=== PATIENT | female | born 1975 | race Caucasian/White ===

== ENCOUNTER 2024-09-06 09:03 | Day surgery (SDC) | payer BC ==
[2024-09-06] MEDS ORDERED: dexAMETHasone sodium phosphate IJ ONE (09:04)
[2024-09-06] MEDS ORDERED: Sodium Chloride 0.9(Preservative Free) 10 ML IJ ONE (09:04)
[2024-09-06] MEDS ORDERED: propofoL IV ONE (11:45)
[2024-09-06] MEDS ORDERED: Xylocaine-Mpf 2% 5 Ml Vial ONE (11:46)
[2024-09-06 12:35] LABS: HCG URINE TEST NEGATIVE (NEGATIVE)
--- NOTE | 2024-09-06 19:25 | XRAY ---
32 seconds of fluoroscopy was used in surgery for a right L4-S1 transforaminal ANATOLIY.
--- NOTE | 2024-09-06 19:39 | XRAY ---
Indication: Right L4-S1 transforaminal ANATOLIY. Intraoperative fluoroscopy provided for 32 seconds. 4 digital spot image submitted for interpretation demonstrates posterior needle tips projecting over expected right L4 and L5 nerve roots. Small amount of contrast injected for needle tip placement. Correlate with intraoperative findings/report.
== END 2024-09-06 12:18 | disposition home or self-care (01) ==
LOC: SDC-PAIN 09:03
PROVIDERS: ATTEND Psychiatry & Neurology Pain Medicine
DX: M54.16 Radiculopathy, lumbar region (principal); E11.9 Type 2 diabetes mellitus without complications
CPT/HCPCS: 64483; 64484; 72100; 81025; 82947; J1100; J2704; Q9966